=== PATIENT | male | born 2000 | race Caucasian/White ===

== ENCOUNTER 2023-01-11 02:19 | Emergency (ER) | payer SELFPAY ==
[2023-01-11] MEDS ORDERED: FAMOTIDINE 20 MG TAB ONE (02:59)
[2023-01-11] MEDS ORDERED: CETIRIZINE HCL 5 MG TABLET ONE (02:59)
--- NOTE | 2023-01-11 03:11 | ER ---
Nurse's Notes [facility] Name: Hiram Garland Age: 22 yrs Sex: Male : 2000 Arrival Date: 01/11/2023 Time: 02:19 Bed 13 Private MD: Diagnosis: Idiopathic urticaria;Streptococcal pharyngitis Presentation: 01/11 02:41 Chief complaint: Patient states: pt randomly broke out in hives all over body. at time as6 of triage symptoms have resolved. Coronavirus screen: At this time, the client does not indicate any symptoms associated with coronavirus-19. Ebola Screen: No symptoms or risks identified at this time. Initial Sepsis Screen: Does the patient meet any 2 criteria? No. Patient's initial sepsis screen is negative. Does the patient have a suspected source of infection? No. Patient's initial sepsis screen is negative. Risk Assessment: Do you want to hurt yourself or someone else? Patient reports no desire to harm self or others. Onset of symptoms was January 11, 2023. 02:41 Acuity: MANUEL 5 as6 02:41 Method Of Arrival: Ambulatory as6 Historical: - Allergies: 02:41 No Known Allergies; as6 - Home Meds: 02:41 None [Active]; as6 - PMHx: 02:41 None; as6 - PSHx: 02:41 None; as6 - Immunization history:: Client reports having NOT received the Covid vaccine. - Social history:: Smoking status: Reported history of juuling and/or vaping. Screenin:25 [facility] ED Fall Risk Assessment (Adult) History of falling in the last 3 months, ll3 including since admission No falls in past 3 months (0 pts) Confusion or Disorientation No (0 pts) Intoxicated or Sedated No (0 pts) Impaired Gait No (0 pts) Mobility Assist Device Used No (0 pt) Altered Elimination No (0 pt) Score/Fall Risk Level 0 - 2 = Low Risk Oriented to surroundings, Maintained a safe environment, Educated pt \T\ family on fall prevention, incl call for assistance when getting out of bed. Abuse screen: Denies threats or abuse. Denies injuries from another. Nutritional screening: No deficits noted. Tuberculosis screening: No symptoms or risk factors identified. Assessment: 03:25 General: Appears comfortable, Behavior is calm, cooperative. Pain: Denies pain. Neuro: ll3 Level of Consciousness is awake, alert, obeys commands, Oriented to person, place, time, situation. Respiratory: Airway is patent Respiratory effort is even, unlabored, Respiratory pattern is regular, symmetrical. EENT: No deficits noted. No signs and/or symptoms were reported regarding the EENT system. Derm: Skin is pink, warm \T\ dry. 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 Vital Signs: 02:41 BP 128 / 82; Pulse 87; Resp 18 S; Temp 98.1(O); Pulse Ox 97% on R/A; Weight 77.11 kg as6 (R); Height 6 ft. 1 in. (R); Pain 0/10; 02:41 Body Mass Index 22.43 (77.11 kg, 185.42 cm) as6 02:41 Pain Scale: Adult as6 ED Course: 02:22 Patient arrived in ED. ja2 02:26 Delisa Ga FNP-C [facility]. snw 02:26 Dann Ravi MD is Attending Physician. snw 02:41 Arm band placed on. as6 02:43 Triage completed. as6 03:25 Patient has correct armband on for positive identification. Bed in low position. Call ll3 light in reach. Side rails up X 1. Adult w/ patient. 03:25 No provider procedures requiring assistance completed. Patient did not have IV access ll3 during this emergency room visit. Administered Medications: 02:53 Drug: ZyrTEC - Cetirizine PO 10 mg Route: PO; ll3 03:27 Follow up: Response: No adverse reaction ll3 02:53 Drug: Famotidine PO 20 mg Route: PO; ll3 03:27 Follow up: Response: No adverse reaction ll3 03:25 Drug: AZITHromycin PO 500 mg Route: PO; ll3 03:27 Follow up: Response: Medication administered at discharge. ll3 Medication: 03:25 VIS not applicable for this client. ll3 Outcome: 03:10 Discharge ordered by . snw 03:25 Discharged to home ambulatory, with significant other. ll3 03:25 Condition: stable 03:25 Discharge instructions given to patient, significant other, Instructed on discharge instructions, follow up and referral plans. medication usage, Demonstrated understanding of instructions, follow-up care, medications, Prescriptions given X 4. 03:28 Patient left the ED. ll3 Signatures: Delisa Ga, ROSE MARIEC ASPHALT SPREADER OPERATOR-Stevew Hazel Santillan Ashby, RN RN as6 You Burks RN RN ll3
--- NOTE | 2023-01-11 03:11 | EDPHYS ---
Physician Documentation [facility] Name: Hiram Garland Age: 22 yrs Sex: Male : 2000 Arrival Date: 01/11/2023 Time: 02:19 Bed 13 Private MD: ED Physician Dann Ravi HPI: 01/11 02:53 This 22 yrs old Male presents to ER via Ambulatory with complaints of Hives, Rash. snw 02:53 Onset: The symptoms/episode began/occurred suddenly, and improved just prior to snw arrival. Associated signs and symptoms: Pertinent positives: sore throat. The patient has not experienced similar symptoms in the past. The patient has not recently seen a physician. 02:54 Girlfriend took photo of pt during urticarial eruption. S/s resolved on arrival here. snw Historical: - Allergies: 02:41 No Known Allergies; as6 - Home Meds: 02:41 None [Active]; as6 - PMHx: 02:41 None; as6 - PSHx: 02:41 None; as6 - Immunization history:: Client reports having NOT received the Covid vaccine. - Social history:: Smoking status: Reported history of juuling and/or vaping. ROS: 02:52 Constitutional: Negative for fever, chills, and weight loss, Eyes: Negative for injury, snw pain, redness, and discharge. 02:52 Neck: Negative for injury, pain, and swelling, Cardiovascular: Negative for chest pain, palpitations, and edema, Respiratory: Negative for shortness of breath, cough, wheezing, and pleuritic chest pain, Abdomen/GI: Negative for abdominal pain, nausea, vomiting, diarrhea, and constipation, Back: Negative for injury and pain, : Negative for injury, bleeding, discharge, and swelling, MS/Extremity: Negative for injury and deformity, Neuro: Negative for headache, weakness, numbness, tingling, and seizure, Psych: Negative for depression, anxiety, suicide ideation, homicidal ideation, and hallucinations. 02:52 ENT: Positive for tightness. 02:52 Skin: Positive for rash, swelling, diffusely. Exam: 02:52 Constitutional: This is a well developed, well nourished patient who is awake, alert, snw and in no acute distress. Head/Face: Normocephalic, atraumatic. Eyes: Pupils equal round and reactive to light, extra-ocular motions intact. Lids and lashes normal. Conjunctiva and sclera are non-icteric and not injected. Cornea within normal limits. Periorbital areas with no swelling, redness, or edema. Neck: Trachea midline, no thyromegaly or masses palpated, and no cervical lymphadenopathy. Supple, full range of motion without nuchal rigidity, or vertebral point tenderness. No Meningismus. Chest/axilla: Normal chest wall appearance and motion. Nontender with no deformity. No lesions are appreciated. Cardiovascular: Regular rate and rhythm with a normal S1 and S2. No gallops, murmurs, or rubs. Normal PMI, no JVD. No pulse deficits. Respiratory: Lungs have equal breath sounds bilaterally, clear to auscultation and percussion. No rales, rhonchi or wheezes noted. No increased work of breathing, no retractions or nasal flaring. Abdomen/GI: Soft, non-tender, with normal bowel sounds. No distension or tympany. No guarding or rebound. No evidence of tenderness throughout. Back: No spinal tenderness. No costovertebral tenderness. Full range of motion. Skin: Warm, dry with normal turgor. Normal color with no rashes, no lesions, and no evidence of cellulitis. MS/ Extremity: Pulses equal, no cyanosis. Neurovascular intact. Full, normal range of motion. Neuro: Awake and alert, GCS 15, oriented to person, place, time, and situation. Cranial nerves II-XII grossly intact. Motor strength 5/5 in all extremities. Sensory grossly intact. Cerebellar exam normal. Normal gait. Psych: Awake, alert, with orientation to person, place and time. Behavior, mood, and affect are within normal limits. 02:52 ENT: Ear canal(s): are normal, TM's: are normal, Nose: is normal, Mouth: is normal, Posterior pharynx: erythema, that is moderate, Voice: is normal. Vital Signs: 02:41 BP 128 / 82; Pulse 87; Resp 18 S; Temp 98.1(O); Pulse Ox 97% on R/A; Weight 77.11 kg as6 (R); Height 6 ft. 1 in. (R); Pain 0/10; 02:41 Body Mass Index 22.43 (77.11 kg, 185.42 cm) as6 02:41 Pain Scale: Adult as6 MDM: 02:43 Patient medically screened. snw 03:12 Differential diagnosis: allergic reaction, strep. Data reviewed: vital signs, nurses snw notes, lab test result(s). I considered the following discharge prescriptions or medication management in the emergency department Medications were administered in the Emergency Department. See MAR. Historians other than the Patient: Spouse/Significant Other: Girlfriend. Counseling: I had a detailed discussion with the patient and/or guardian regarding: the historical points, exam findings, and any diagnostic results supporting the discharge/admit diagnosis, lab results, the need for outpatient follow up, for definitive care, to return to the emergency department if symptoms worsen or persist or if there are any questions or concerns that arise at home. Special discussion: Based on the history and exam findings, there is no indication for further emergent testing or inpatient evaluation. I discussed with the patient/guardian the need to see the paving supervisor for further evaluation of the symptoms. I discussed with the patient/guardian the need to see the primary care provider for further evaluation of the symptoms. 01/11 02:52 Order name: Strep; Complete Time: 03:10 snw Administered Medications: 02:53 Drug: ZyrTEC - Cetirizine PO 10 mg Route: PO; ll3 03:27 Follow up: Response: No adverse reaction ll3 02:53 Drug: Famotidine PO 20 mg Route: PO; ll3 03:27 Follow up: Response: No adverse reaction ll3 03:25 Drug: AZITHromycin PO 500 mg Route: PO; ll3 03:27 Follow up: Response: Medication administered at discharge. ll3 Disposition Summary: 01/11/23 03:10 Discharge Ordered Location: Home snw Condition: Stable snw Diagnosis - Idiopathic urticaria snw - Streptococcal pharyngitis snw Followup: snw - With: Emergency Department - When: As needed - Reason: Worsening of condition Followup: snw - With: Private Physician - When: 2 - 3 days - Reason: Recheck today's complaints, Continuance of care, Re-evaluation by your physician Discharge Instructions: - Discharge Summary Sheet snw - Hives snw - Rash, Adult snw - Strep Throat, Adult snw Forms: - Work release form snw - Medication Reconciliation Form snw - Thank You Letter snw - Antibiotic Education snw - Prescription Opioid Use snw - [email or web address] snw Prescriptions: - Zyrtec 10 mg Oral Tablet - take 1 tablet by ORAL route once daily As needed; 20 tablet; Refills: 0, snw Product Selection Permitted - Prednisone 20 mg Oral Tablet - take 2 tablets by ORAL route once daily for 5 days; 10 tablet; Refills: 0, snw Product Selection Permitted - Pepcid 20 mg Oral Tablet - take 1 tablet by ORAL route once daily; 20 tablet; Refills: 0, Product snw Selection Permitted - Zithromax 500 mg Oral Tablet - take 1 tablet by ORAL route once daily for 5 days; 5 tablet; Refills: 0, snw Product Selection Permitted Addendum: 01/14/2023 07:44 Co-signature as Attending Physician, Dann Ravi MD I agree with the assessment s p4 and plan of care. I reviewed the patient's care provided by the Advanced Practice Provider and agree with the diagnosis and treatment plan. Signatures: Dispatcher [employer] EDDC Delisa Ga, REAL ESTATE UTILIZATION OFFICER-C REAL ESTATE UTILIZATION OFFICER-Csnw Flaco Ledezma RN RN as6 You Burks RN RN ll3 Dann Ravi MD MD sp4
[2023-01-11] MEDS ORDERED: AZITHROMYCIN 250 MG TAB ONE (03:30)
[2023-01-11 03:32] VITALS: BP 128/82; TEMP 98.1; O2SAT 97
== END 2023-01-11 03:28 | disposition home or self-care (01) ==
LOC: ER 02:19
DX: J02.0 Streptococcal pharyngitis (principal); L50.1 Idiopathic urticaria
CPT/HCPCS: 87081; 99283

== ENCOUNTER 2023-10-21 20:55 | Emergency (ER) | payer OTHER, SELFPAY ==
--- NOTE | 2023-10-21 21:40 | RAD REPORT ---
EXAM DESCRIPTION: Iris Single View10/21/2023 9:23 pm CLINICAL HISTORY: Congestion COMPARISON: none FINDINGS: The lungs appear clear of acute infiltrate. The heart is normal size IMPRESSION: No acute abnormalities displayed
[2023-10-21 22:43] LABS: Absolute Eosinophils 0.1 K/uL (0-0.5); Absolute Lymphocytes (CBC) 1.3 K/uL (0.7-4.9); Absolute Monocytes 0.5 K/uL (0.1-1.3); Absolute Neutrophil 6.1 K/uL (1.8-8.0); Basophils % 0.4 % (0-1.3); Eosinophils % 1.2 % (0-4.4); Hematocrit 38.1 % (39.6-49.0); Hemoglobin 13.5 g/dL (13.6-17.9); Lymphocytes % 16.4 % (15.3-44.8); MCH 33.8 pg (27.0-35.0); MCHC 35.3 g/dL (32.0-36.0); MCV 95.6 fL (80-100); MPV 7.4 fL (7.6-11.3); Monocytes % 6.1 % (3.3-12.3); Neutrophils % 75.9 % (41.7-73.7); Nucleated Red Blood Cells % 0.1 % (0-0); Platelets 293 thou/uL (152-406); RBC Red Blood Cell Count 3.99 M/uL (4.33-5.43); Red Cell Distribution Width 12.9 % (12.1-15.2)
[2023-10-21 22:56] LABS: ALT/SGPT 55 U/L (16-61); AST/SGOT 27 U/L (15-37); Albumin 4.5 g/dL (3.4-5.0); Albumin/Globulin Ratio 1.4 (1.1-1.8); Alkaline Phosphatase 65 U/L (45-117); Anion Gap 9.1 mEq/L (5.0-15.0); BUN Blood Urea Nitrogen 16 mg/dL (7-18); Bicarbonate 25 mEq/L (21-32); Bilirubin Direct 0.1 mg/dL (0-0.2); Bilirubin Indirect, Calculated 0.3 mg/dL (0.2-0.8); Bilirubin Total 0.4 mg/dL (0.2-1.0); Globulin 3.3 g/dL (2.3-3.5); Glomerular Filtration Rate 111 ml/min (=/>90); Glucose Level 97 mg/dL (74-106); Lipase 52 U/L (13-75); Potassium 3.1 mEq/L (3.5-5.1); Protein, Total 7.8 g/dL (6.4-8.2); Sodium Level 136 mEq/L (136-145)
[2023-10-21 22:57] LABS: C-Reactive Protein < 2.90 mg/L (<3.00)
--- NOTE | 2023-10-21 23:23 | EDPHYS ---
Physician Documentation [facility] Name: Hiram Garland Age: 23 yrs Sex: Male : 2000 Arrival Date: 10/21/2023 Time: 20:55 Bed 10 Private MD: ED Physician Dann Ravi HPI: 10/20 21:06 This 23 yrs old Male presents to ER via Unassigned with complaints of sp4 Chemical Inhalation, Inhaled synthetic phenol. 23:31 23-year-old male presents with complaint of feeling unwell after possible fentanyl sp4 inhalation at 8 PM. Patient is employed for [employer] at 8 PM he was at work and next of the valve all of this in bed external receptacle. Patient reports that he briefly took off his mask and felt unwell. Denied oral irritation, denied cough, denied wheezing, denied bloody exudate or discharge or sputum. . Historical: - Allergies: 21:35 wasps/bees; bm8 - Home Meds: 21:35 None [Active]; bm8 - PMHx: 21:35 None; bm8 - PSHx: 21:35 None; bm8 - Immunization history:: Adult Immunizations unknown. - Infectious Disease History:: Denies. - Social history:: Smoking status: Reported history of juuling and/or vaping. - Family history:: not pertinent. ROS: 23:31 Constitutional: Positive for fatigue and positive for feeling unwell sp4 23:31 All other systems are negative, Exam: 23:31 Constitutional: This is a well developed, well nourished patient who is awake, alert, sp4 and in no acute distress. Head/Face: Normocephalic, atraumatic. Eyes: Pupils equal round and reactive to light, extra-ocular motions intact. Lids and lashes normal. Conjunctiva and sclera are not injected. Cornea within normal limits. Periorbital areas with no swelling, redness, or edema. ENT: Nares patent. No nasal discharge, no septal abnormalities noted. Tympanic membranes are normal and external auditory canals are clear. Oropharynx with no redness, swelling, or masses, exudates, or evidence of obstruction, uvula midline. Mucous membranes moist. Neck: Trachea midline, no thyromegaly or masses palpated, and no cervical lymphadenopathy. Supple, full range of motion without nuchal rigidity, or vertebral point tenderness. Chest/axilla: Normal chest wall appearance and motion. Nontender with no deformity. No lesions are appreciated. Cardiovascular: Regular rate and rhythm with a normal S1 and S2. No gallops, murmurs, or rubs. Normal PMI, no JVD. No pulse deficits. Respiratory: Lungs have equal breath sounds bilaterally, clear to auscultation and percussion. No rales, rhonchi or wheezes noted. No increased work of breathing, no retractions or nasal flaring. Abdomen/GI: Soft, with normal bowel sounds. No distension or tympany. No guarding or rebound. No evidence of tenderness throughout. Back: No spinal tenderness. No costovertebral tenderness. Skin: Warm, dry with normal turgor. Normal color with no rashes, no lesions, and no evidence of cellulitis. MS/ Extremity: Pulses equal, no cyanosis. Neurovascular intact. Full, normal range of motion. Neuro: Awake and alert, GCS 15, oriented to person, place, time, and situation. Cranial nerves II-XII grossly intact. Motor strength 5/5 in all extremities. Sensory grossly intact. Psych: Awake, alert, with orientation to person, place and time. Behavior, mood, and affect are within normal limits Vital Signs: 21:10 BP 160 / 80; Pulse 89; Resp 16; Temp 98.9(O); Pulse Ox 100% on R/A; Weight 79.38 kg km8 (R); Height 6 ft. 0 in. (R); Pain 0/10; 22:41 BP 133 / 76; Pulse 88; Resp 16; Temp 98.7; Pulse Ox 100% on R/A; Pain 0/10; bm8 23:22 BP 131 / 81; Pulse 68; Resp 17; Temp 98.7; Pulse Ox 97% ; Pain 0/10; bm8 21:10 Body Mass Index 23.73 (79.38 kg, 182.88 cm) km 21:10 Pain Scale: Adult km8 22:41 Pain Scale: Adult bm8 23:22 Pain Scale: Adult bm8 [place] Coma Score: 21:35 Eye Response: spontaneous(4). Motor Response: obeys commands(6). Verbal Response: bm8 oriented(5). Total: 15. 22:41 Eye Response: spontaneous(4). Motor Response: obeys commands(6). Verbal Response: bm8 oriented(5). Total: 15. 23:31 Eye Response: spontaneous(4). Motor Response: obeys commands(6). Verbal Response: sp4 oriented(5). Total: 15. MDM: 21:02 Patient medically screened. sp4 23:31 Differential Diagnosis Inhalation injury. Data reviewed: vital signs, nurses notes, lab sp4 test result(s), radiologic studies, plain films. ED course: EXAM DESCRIPTION: Iris Verduzco View10/21/2023 9:23 pm CLINICAL HISTORY: Congestion COMPARISON: none FINDINGS: The lungs appear clear of acute infiltrate. The heart is normal size IMPRESSION: No acute abnormalities displayed. 23:34 ED course: Patient does not have signs of inhalation injury on exam. Normal exam of the sp4 oral cavity and normal lung sounds. Normal chest x-ray. Labs essentially unremarkable except for mildly decreased potassium. No further recommendation. Patient cleared for work without restrictions.. 10/20 21:02 Order name: BMP; Complete Time: 23:16 sp4 10/20 21:02 Order name: CBC with Diff; Complete Time: 22:46 sp4 10/20 21:02 Order name: Hepatic Function; Complete Time: 23:16 sp4 10/20 21:02 Order name: Lipase; Complete Time: 23:16 sp4 10/20 22:31 Order name: C-Reactive Protein; Complete Time: 23:16 EDMS 10/20 21:02 Order name: XRAY CXR (1 view); Complete Time: 22:46 sp4 10/20 21:02 Order name: IV Saline Lock; Complete Time: 21:35 sp4 10/20 21:02 Order name: Labs collected and sent; Complete Time: 21:35 sp4 10/20 21:02 Order name: O2 Per Protocol; Complete Time: 21:35 sp4 10/20 21:02 Order name: O2 Sat Monitoring; Complete Time: 21:35 sp4 Administered Medications: No medications were administered Disposition Summary: 10/21/23 23:22 Discharge Ordered Problem: new sp4 Symptoms: have improved sp4 Condition: Stable sp4 Diagnosis - Acute inhalational of synthetic Phenol , sp4 - Normal respiratory exam, sp4 - Evaluation for acute inhalation injury sp4 Followup: sp4 - With: Private Physician - When: 7 - 10 days - Reason: Recheck today's complaints Discharge Instructions: - Discharge Summary Sheet sp4 - Chemical Inhalation Injury, Adult sp4 Forms: - Patient Portal Instructions sp4 Signatures: Dispatcher [employer] EDMS Dann Ravi MD MD sp4 Julia Teixeira, RN RN km8 Meng Harding RN RN bm8 Corrections: (The following items were deleted from the chart) 22:31 21:15 C-REACTIVE PROTEIN+C.LAB.BRZ ordered. EDMS EDMS
--- NOTE | 2023-10-21 23:23 | ER ---
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 Coronavirus screen: Client denies travel out of the [place] in the last 14 days. Ebola Screen: No symptoms or risks identified at this time. Initial Sepsis Screen: Does the patient meet any 2 criteria? No. Patient's initial sepsis screen is negative. Does the patient have a suspected source of infection? No. Patient's initial sepsis screen is negative. Risk Assessment: Do you want to hurt yourself or someone else? Patient reports no desire to harm self or others. Onset of symptoms was October 21, 2023 at 20:00. 21:10 Method Of Arrival: Ambulatory km8 21:10 Acuity: MANUEL 3 km8 Triage Assessment: 21:10 General: Appears in no apparent distress. comfortable, Behavior is calm, cooperative, km8 appropriate for age. Pain: Denies pain. EENT: No signs and/or symptoms were reported regarding the EENT system. Neuro: Level of Consciousness is awake, alert, obeys commands, Oriented to person, place, time, situation. Cardiovascular: Denies chest pain, shortness of breath, Patient's skin is warm and dry. Respiratory: Reports none Airway is patent Respiratory effort is even, unlabored, Respiratory pattern is regular, symmetrical, Onset: The symptoms/episode began/occurred suddenly, the patient has mild shortness of breath. GI: No signs and/or symptoms were reported involving the gastrointestinal system. : No signs and/or symptoms were reported regarding the genitourinary system. Derm: No signs and/or symptoms reported regarding the dermatologic system. Skin is intact, is healthy with good turgor, Skin is dry, Skin is pink, warm \T\ dry. normal, Skin temperature is warm. Musculoskeletal: No signs and/or symptoms reported regarding the musculoskeletal system. Range of motion: intact in all extremities. Historical: - Allergies: 21:35 wasps/bees; bm8 - Home Meds: 21:35 None [Active]; bm8 - PMHx: 21:35 None; bm8 - PSHx: 21:35 None; bm8 - Immunization history:: Adult Immunizations unknown. - Infectious Disease History:: Denies. - Social history:: Smoking status: Reported history of juuling and/or vaping. - Family history:: not pertinent. Screenin:13 [facility] ED Fall Risk Assessment (Adult) History of falling in the last 3 months, km8 including since admission No falls in past 3 months (0 pts) Confusion or Disorientation No (0 pts) Intoxicated or Sedated No (0 pts) Impaired Gait No (0 pts) Mobility Assist Device Used No (0 pt) Altered Elimination No (0 pt) Score/Fall Risk Level 0 - 2 = Low Risk Oriented to surroundings, Maintained a safe environment, Educated pt \T\ family on fall prevention, incl call for assistance when getting out of bed, Assessed \T\ reinforced patient's understanding of fall precautions. Abuse screen: Denies threats or abuse. Denies injuries from another. Nutritional screening: No deficits noted. Tuberculosis screening: No symptoms or risk factors identified. Assessment: 21:31 Reassessment: Patient appears in no apparent distress at this time. Patient and/or bm8 family updated on plan of care and expected duration. Pain level reassessed. Patient is alert, oriented x 3, equal unlabored respirations, skin warm/dry/pink. Patient denies pain at this time. General: Appears in no apparent distress. comfortable, Behavior is calm, cooperative, appropriate for age. Pain: Denies pain. Neuro: No deficits noted. Level of Consciousness is awake, alert, obeys commands, Oriented to person, place, time, situation, Appropriate for age. Cardiovascular: Denies chest pain, lightheadedness, shortness of breath, Heart tones S1 S2 present Capillary refill < 3 seconds Patient's skin is warm and dry. Rhythm is sinus rhythm. Respiratory: No deficits noted. Airway is patent Respiratory effort is even, unlabored, Respiratory pattern is regular, symmetrical, Breath sounds are clear bilaterally. the patient reports symptoms have resolved. GI: No deficits noted. No signs and/or symptoms were reported involving the gastrointestinal system. : No deficits noted. No signs and/or symptoms were reported regarding the genitourinary system. EENT: No deficits noted. No signs and/or symptoms were reported regarding the EENT system. Derm: No deficits noted. No signs and/or symptoms reported regarding the dermatologic system. Musculoskeletal: No deficits noted. No signs and/or symptoms reported regarding the musculoskeletal system. 22:41 Reassessment: Patient appears in no apparent distress at this time. No changes from [facility] previously documented assessment. Patient and/or family updated on plan of care and expected duration. Pain level reassessed. Patient is alert, oriented x 3, equal unlabored respirations, skin warm/dry/pink. Patient denies pain at this time. 23:22 Reassessment: Patient appears in no apparent distress at this time. No changes from 8 previously documented assessment. Patient and/or family updated on plan of care and expected duration. Pain level reassessed. Patient is alert, oriented x 3, equal unlabored respirations, skin warm/dry/pink. Patient denies pain at this time. Vital Signs: 21:10 BP 160 / 80; Pulse 89; Resp 16; Temp 98.9(O); Pulse Ox 100% on R/A; Weight 79.38 kg 8 (R); Height 6 ft. 0 in. (R); Pain 0/10; 22:41 BP 133 / 76; Pulse 88; Resp 16; Temp 98.7; Pulse Ox 100% on R/A; Pain 0/10; bm8 23:22 BP 131 / 81; Pulse 68; Resp 17; Temp 98.7; Pulse Ox 97% ; Pain 0/10; bm8 21:10 Body Mass Index 23.73 (79.38 kg, 182.88 cm) [facility] 21:10 Pain Scale: Adult km8 22:41 Pain Scale: Adult bm8 23:22 Pain Scale: Adult bm8 [place] Coma Score: 21:35 Eye Response: spontaneous(4). Motor Response: obeys commands(6). Verbal Response: bm8 oriented(5). Total: 15. 22:41 Eye Response: spontaneous(4). Motor Response: obeys commands(6). Verbal Response: bm8 oriented(5). Total: 15. 23:31 Eye Response: spontaneous(4). Motor Response: obeys commands(6). Verbal Response: sp4 oriented(5). Total: 15. ED Course: 20:57 Patient arrived in ED. jj6 21:01 Dann Ravi MD is Attending Physician. sp4 21:10 Arm band placed on right wrist. km8 21:11 Triage completed. km8 21:24 XRAY CXR (1 view) In Process Unspecified. EDMS 21:31 Meng Harding, RN is Primary Nurse. bm8 21:35 Patient has correct armband on for positive identification. Bed in low position. Call bm8 light in reach. Side rails up X 1. Adult w/ patient. Pulse ox on. NIBP on. Door closed. Noise minimized. Visitors limited. Lights dimmed. Warm blanket given. Verbal reassurance given. 21:35 BMP Sent. bm8 21:35 CBC with Diff Sent. bm8 21:35 Hepatic Function Sent. bm8 21:35 Lipase Sent. bm8 21:35 No provider procedures requiring assistance completed. Initial lab(s) drawn, by nm, bm8 sent to lab. X-ray(s) taken. Inserted saline lock: 18 gauge in left antecubital area, using aseptic technique. Blood collected. 23:22 Provided Education on: post ER care. bm8 23:22 IV discontinued, intact, bleeding controlled, No redness/swelling at site. Pressure bm8 dressing applied. Administered Medications: No medications were administered Medication: 21:35 VIS not applicable for this client. bm8 Outcome: 23:22 Discharge ordered by . sp4 23:30 Patient left the ED. bm8 Signatures: Dispatcher [employer] EDPR Jonathan Janice jj6 Dann Ravi MD MD sp4 Julia Teixeira, RN RN km8 Meng Harding, RN RN bm8
[2023-10-22 02:17] VITALS: BP 131/81; TEMP 98.7; O2SAT 97
== END 2023-10-21 23:30 | disposition home or self-care (01) ==
LOC: ER 20:55
DX: T49.0X1A Poisoning by local antifungal, anti-infective and anti-inflammatory drugs, accidental (unintentional), initial encounter (principal); Z91.030 Bee allergy status; Z91.038 Other insect allergy status
CPT/HCPCS: 36415; 71045; 80048; 80076; 83690; 85025; 86140

== ENCOUNTER 2023-12-10 20:46 | Emergency (ER) | payer BC, OTHER ==
[2023-12-10 22:13] LABS: Absolute Eosinophils 0.1 K/uL (0-0.5); Absolute Lymphocytes (CBC) 1.7 K/uL (0.7-4.9); Absolute Monocytes 0.4 K/uL (0.1-1.3); Absolute Neutrophil 6.1 K/uL (1.8-8.0); Basophils % 0.3 % (0-1.3); Eosinophils % 1.2 % (0-4.4); Hematocrit 40.1 % (39.6-49.0); Hemoglobin 13.9 g/dL (13.6-17.9); Lymphocytes % 20.9 % (15.3-44.8); MCH 32.9 pg (27.0-35.0); MCHC 34.7 g/dL (32.0-36.0); MCV 94.8 fL (80-100); MPV 7.1 fL (7.6-11.3); Monocytes % 5.2 % (3.3-12.3); Neutrophils % 72.4 % (41.7-73.7); Platelets 330 thou/uL (152-406); RBC Red Blood Cell Count 4.23 M/uL (4.33-5.43); Red Cell Distribution Width 12.8 % (12.1-15.2)
[2023-12-10 22:18] LABS: PT Prothrombin Time 12.6 SECONDS (9.5-12.5); Protime INR 1.15
--- NOTE | 2023-12-10 22:28 | RAD REPORT ---
EXAM DESCRIPTION: RAD - Chest Single View - 12/10/2023 10:23 pm CLINICAL HISTORY: CHEST PAIN Chest pain. COMPARISON: Chest Single View dated 10/21/2023 FINDINGS: Portable technique limits examination quality. The lungs are grossly clear. The heart is normal in size. No displaced fractures. IMPRESSION: No acute intrathoracic process suspected.
[2023-12-10 22:38] LABS: ALT/SGPT 31 U/L (16-61); Albumin 4.8 g/dL (3.4-5.0); Albumin/Globulin Ratio 1.5 (1.1-1.8); Alkaline Phosphatase 73 U/L (45-117); Anion Gap 8.7 mEq/L (5.0-15.0); BUN Blood Urea Nitrogen 12 mg/dL (7-18); Bicarbonate 26 mEq/L (21-32); Bilirubin Direct 0.2 mg/dL (0-0.2); Bilirubin Indirect, Calculated 0.5 mg/dL (0.2-0.8); Bilirubin Total 0.7 mg/dL (0.2-1.0); Globulin 3.3 g/dL (2.3-3.5); Glomerular Filtration Rate 111 ml/min (=/>90); Glucose Level 97 mg/dL (74-106); Magnesium 2.1 mg/dL (1.6-2.4); NT PRO-BNP 8 pg/mL (<125); Potassium 3.7 mEq/L (3.5-5.1); Protein, Total 8.1 g/dL (6.4-8.2); Sodium Level 136 mEq/L (136-145); Troponin High Sensitivity 3.7 pg/mL (<58.9)
[2023-12-10 23:00] LABS: AST/SGOT < 10 U/L (15-37)
--- NOTE | 2023-12-11 00:46 | EDPHYS ---
Physician Documentation [facility] Name: Hiram Garland Age: 23 yrs Sex: Male : 2000 Arrival Date: 12/10/2023 Time: 20:46 Bed 8 Private MD: ED Physician Dann Ravi HPI: 12/09 21:19 This 23 yrs old Male presents to ER via Unassigned with complaints of sp4 Breathing Difficulty. 12/10 03:38 23-year-old male presents with complaint of difficulty breathing since he is sp4 inhalational fentanyl on 10/21/2023. The patient also reported some chest discomfort as well. Historical: - Allergies: 12/09 21:39 wasps/bees; cm10 - PMHx: 21:39 None; cm10 - PSHx: 21:39 None; cm10 - Immunization history:: Adult Immunizations up to date. - Infectious Disease History:: Denies. - Social history:: Smoking status: Patient/guardian denies using tobacco, Stopped _ months ago 2. - Family history:: not pertinent. ROS: 12/10 03:38 Constitutional: Negative for fever, chills, and weight loss, positive dyspnea and chest sp4 pain All other systems are negative, Exam: 00:34 Constitutional: This is a well developed, well nourished patient who is awake, alert, sp4 and in no acute distress. Head/Face: Normocephalic, atraumatic. Eyes: Pupils equal round and reactive to light, extra-ocular motions intact. Lids and lashes normal. Conjunctiva and sclera are not injected. Cornea within normal limits. Periorbital areas with no swelling, redness, or edema. ENT: Nares patent. No nasal discharge, no septal abnormalities noted. Tympanic membranes are normal and external auditory canals are clear. Oropharynx with no redness, swelling, or masses, exudates, or evidence of obstruction, uvula midline. Mucous membranes moist. Neck: Trachea midline, no thyromegaly or masses palpated, and no cervical lymphadenopathy. Supple, full range of motion without nuchal rigidity, or vertebral point tenderness. Chest/axilla: Normal chest wall appearance and motion. Nontender with no deformity. No lesions are appreciated. Cardiovascular: Regular rate and rhythm with a normal S1 and S2. No gallops, murmurs, or rubs. Normal PMI, no JVD. No pulse deficits. Respiratory: Lungs have equal breath sounds bilaterally, clear to auscultation and percussion. No rales, rhonchi or wheezes noted. No increased work of breathing, no retractions or nasal flaring. Abdomen/GI: Soft, with normal bowel sounds. No distension or tympany. No guarding or rebound. No evidence of tenderness throughout. Back: No spinal tenderness. No costovertebral tenderness. Skin: Warm, dry with normal turgor. Normal color with no rashes, no lesions, and no evidence of cellulitis. MS/ Extremity: Pulses equal, no cyanosis. Neurovascular intact. Full, normal range of motion. Neuro: Awake and alert, GCS 15, oriented to person, place, time, and situation. Cranial nerves II-XII grossly intact. Motor strength 5/5 in all extremities. Sensory grossly intact. Psych: Awake, alert, with orientation to person, place and time. Behavior, mood, and affect are within normal limits 00:34 ECG was reviewed by the Attending Physician. EKG at 2207, normal sinus rhythm with sinus arrhythmia at a rate of 88. Otherwise normal EKG. Vital Signs: 12/09 21:37 BP 124 / 77; Pulse 74; Resp 18; Temp 99.3(TE); Pulse Ox 99% ; Weight 70.76 kg; Height 6 cm10 ft. 0 in. ; Pain 6/10; 22:16 BP 137 / 89; Pulse 89; Resp 16; Pulse Ox 100% on R/A; km8 22:30 BP 109 / 75; Pulse 67; Resp 16; Pulse Ox 100% ; km8 23:00 BP 113 / 61; Pulse 67; Resp 16; Pulse Ox 99% on R/A; km8 23:30 BP 121 / 70; Pulse 74; Resp 16; Pulse Ox 100% on R/A; 12/10 00:00 BP 122 / 56; Pulse 64; Resp 16; Pulse Ox 98% on R/A; km8 00:30 BP 111 / 85; Pulse 62; Resp 16; Pulse Ox 100% on R/A; km8 00:52 BP 111 / 85; Pulse 79; Resp 19; Temp 98.2(TE); Pulse Ox 98% ; Pain 0/10; tm6 05/30 21:37 Body Mass Index 21.16 (70.76 kg, 182.88 cm) cm10 12/09 21:37 Pain Scale: Adult cm10 00:52 Pain Scale: Adult tm6 [place] Coma Score: 12/09 22:14 Eye Response: spontaneous(4). Motor Response: obeys commands(6). Verbal Response: km8 oriented(5). Total: 15. MDM: 21:43 Patient medically screened. sp4 12/10 00:32 ED course: EXAM: CTAngiography Chest With Intravenous Contrast CLINICAL HISTORY: The sp4 patient is 23 years old and is Male; DYSPNEA TECHNIQUE: Axial computed tomographic angiography images of the chest with intravenous contrast. Sagittal and coronal reformatted images were created and reviewed. This CT exam was performed using one or more of the following dose reduction techniques: automated exposure control, adjustment of the mA and/or kV according to patient size, and/or use of iterative reconstruction technique. MIP reconstructed images were created and reviewed. COMPARISON: No relevant prior studies available. FINDINGS: PULMONARYARTERIES: Unremarkable. No pulmonary embolism. AORTA: No acute findings. No thoracic aortic aneurysm. LUNGS: Unremarkable. No mass. No consolidation. PLEURAL SPACE: Unremarkable. No significant effusion. No pneumothorax. HEART: Unremarkable. No cardiomegaly. No significant pericardial effusion. No evidence of RV dysfunction. BONES/JOINTS: No acute fracture. No dislocation. SOFT TISSUES: Unremarkable. LYMPH NODES: Unremarkable. No enlarged lymph nodes. IMPRESSION: Normal chest CTA. No pulmonary embolism. 03:38 Differential diagnosis: Anxiety Reaction asthma, Bronchitis pneumonia, Pneumothorax. sp4 Data reviewed: vital signs, nurses notes, old medical records, lab test result(s), EKG, radiologic studies, CT scan, plain films. 03:40 ED course: Patient was advised to see promotions officer Dr. Bella for pulmonary function sp4 test.. 12/09 21:55 Order name: Basic Metabolic Panel; Complete Time: 00: sp4 12/09 21:55 Order name: CBC with Diff; Complete Time: : sp4 12/09 21:55 Order name: LFT's; Complete Time: 00: sp4 12/09 21:55 Order name: Magnesium; Complete Time: 00: sp4 12/09 21:55 Order name: NT PRO-BNP; Complete Time: 00:4 12/09 21:55 Order name: PT-INR; Complete Time: : 4 12/09 21:55 Order name: Troponin HS; Complete Time: : 4 12/09 21:55 Order name: T4 Free; Complete Time: : 4 12/09 21:55 Order name: TSH; Complete Time: 00: 4 12/09 21:55 Order name: XRAY Chest (1 view); Complete Time: : 4 12/09 21:55 Order name: CT Chest For PE Angio 4 12/09 21:55 Order name: EKG; Complete Time: :4 12/09 21:55 Order name: Cardiac monitoring; Complete Time: 22: [facility] 12/09 21:55 Order name: EKG - Nurse/Tech; Complete Time: 22: 12/09 21:55 Order name: IV Saline Lock; Complete Time: 22: [facility] 12/09 21:55 Order name: Labs collected and sent; Complete Time: : 12/09 21:55 Order name: O2 Per Protocol; Complete Time: 22:4 12/09 21:55 Order name: O2 Sat Monitoring; Complete Time: : EC:34 Rate is 88 beats/min. Rhythm is regular, Normal Sinus Rhythm. QRS [place] is Normal. NM sp4 interval is normal. QRS interval is normal. QT interval is normal. No Q waves. T waves are Normal. No ST changes noted. Clinical impression: Normal ECG. Interpreted by me. Reviewed by me. Administered Medications: No medications were administered Disposition Summary: 12/11/23 00:46 Discharge Ordered Notes: Location: Home sp4 Problem: new sp4 Symptoms: have improved sp4 Condition: Stable sp4 Diagnosis - Dyspnea, unspecified sp4 - Acid reflux sp4 Followup: sp4 - With: Reza Bella MD - When: 7 - 10 days - Reason: Recheck today's complaints Discharge Instructions: - Discharge Summary Sheet sp4 - Gastroesophageal Reflux Disease, Adult, [id number] sp4 Forms: - Patient Portal Instructions sp4 - Work release form tm6 Prescriptions: - omeprazole 20 mg Oral capsule,delayed release (e.c.) - take 1 capsule ORAL route daily; 30 capsule; Refills: 0, Product Selection sp4 Permitted Signatures: Dispatcher [employer] Dann Duncan MD MD sp4 Dinorah Oreilly, RN RN cm10
--- NOTE | 2023-12-11 00:46 | ER ---
Nurse's Notes [facility] Name: Hiram Garland Age: 23 yrs Sex: Male : 2000 Arrival Date: 12/10/2023 Time: 20:46 Bed 8 Private MD: Diagnosis: Dyspnea, unspecified;Acid reflux Presentation: 12/09 21:37 Chief complaint: Patient states: Exposed to Phenyl 8 weeks ago and since then he has cm10 been having shortness of breath. Respirations even and unlabored in triage. Pt states that his shortness of breath is worse when laying flat. Coronavirus screen: Client denies travel out of the [place] in the last 14 days. At this time, the client does not indicate any symptoms associated with coronavirus-19. Ebola Screen: Patient denies travel to an Ebola-affected area in the 21 days before illness onset. No symptoms or risks identified at this time. Initial Sepsis Screen: Does the patient meet any 2 criteria? No. Patient's initial sepsis screen is negative. Does the patient have a suspected source of infection? No. Patient's initial sepsis screen is negative. Risk Assessment: Do you want to hurt yourself or someone else? Patient reports no desire to harm self or others. Onset of symptoms was December 10, 2023. 21:37 Method Of Arrival: Ambulatory 10 21:37 Acuity: MANUEL 3 cm10 Triage Assessment: 21:39 General: Appears in no apparent distress. comfortable, Behavior is calm, cooperative. cm10 Neuro: No deficits noted. Level of Consciousness is awake, alert, obeys commands, Oriented to person, place, time, situation, Appropriate for age. Respiratory: No deficits noted. Reports shortness of breath at rest Airway is patent Respiratory effort is even, unlabored, Respiratory pattern is regular, symmetrical. 12/10 00:52 Respiratory: Onset: The symptoms/episode began/occurred. tm6 Historical: - Allergies: 12/09 21:39 wasps/bees; cm10 - PMHx: 21:39 None; cm10 - PSHx: 21:39 None; cm10 - Immunization history:: Adult Immunizations up to date. - Infectious Disease History:: Denies. - Social history:: Smoking status: Patient/guardian denies using tobacco, Stopped _ months ago 2. - Family history:: not pertinent. Screenin:14 [facility] ED Fall Risk Assessment (Adult) History of falling in the last 3 months, km8 including since admission No falls in past 3 months (0 pts) Confusion or Disorientation No (0 pts) Intoxicated or Sedated No (0 pts) Impaired Gait No (0 pts) Mobility Assist Device Used No (0 pt) Altered Elimination No (0 pt) Score/Fall Risk Level 0 - 2 = Low Risk Oriented to surroundings, Maintained a safe environment, Educated pt \T\ family on fall prevention, incl call for assistance when getting out of bed, Assessed \T\ reinforced patient's understanding of fall precautions. Abuse screen: Denies threats or abuse. Denies injuries from another. Nutritional screening: No deficits noted. Tuberculosis screening: No symptoms or risk factors identified. Assessment: 22:14 General: Appears in no apparent distress. comfortable, Behavior is calm, cooperative, km8 appropriate for age. Pain: Denies pain. Neuro: Level of Consciousness is awake, alert, obeys commands, Oriented to person, place, time, situation. Cardiovascular: Denies chest pain, shortness of breath, Patient's skin is warm and dry. Rhythm is sinus rhythm. Respiratory: Reports SOB when laying down and trying to go to sleep; no SOB at this time Airway is patent Respiratory effort is even, unlabored, Respiratory pattern is regular, symmetrical, Breath sounds are clear bilaterally. GI: No signs and/or symptoms were reported involving the gastrointestinal system. : No signs and/or symptoms were reported regarding the genitourinary system. EENT: No signs and/or symptoms were reported regarding the EENT system. Derm: No signs and/or symptoms reported regarding the dermatologic system. Skin is intact, is healthy with good turgor, Skin is dry, Skin is pink, warm \T\ dry. normal, Skin temperature is warm. Musculoskeletal: No signs and/or symptoms reported regarding the musculoskeletal system. Range of motion: intact in all extremities. 23:05 Reassessment: Patient appears in no apparent distress at this time. No changes from km8 previously documented assessment. Patient and/or family updated on plan of care and expected duration. Pain level reassessed. Patient is alert, oriented x 3, equal unlabored respirations, skin warm/dry/pink. 12/10 00:36 Reassessment: Patient appears in no apparent distress at this time. No changes from km8 previously documented assessment. Patient and/or family updated on plan of care and expected duration. Pain level reassessed. Patient is alert, oriented x 3, equal unlabored respirations, skin warm/dry/pink. Dr. Ravi at bedside speaking with pt about results and POC. Vital Signs: 12/09 21:37 BP 124 / 77; Pulse 74; Resp 18; Temp 99.3(TE); Pulse Ox 99% ; Weight 70.76 kg; Height 6 cm10 ft. 0 in. ; Pain 6/10; 22:16 BP 137 / 89; Pulse 89; Resp 16; Pulse Ox 100% on R/A; km8 22:30 BP 109 / 75; Pulse 67; Resp 16; Pulse Ox 100% ; km8 23:00 BP 113 / 61; Pulse 67; Resp 16; Pulse Ox 99% on R/A; km8 23:30 BP 121 / 70; Pulse 74; Resp 16; Pulse Ox 100% on R/A; km8 12/10 00:00 BP 122 / 56; Pulse 64; Resp 16; Pulse Ox 98% on R/A; km8 00:30 BP 111 / 85; Pulse 62; Resp 16; Pulse Ox 100% on R/A; km8 00:52 BP 111 / 85; Pulse 79; Resp 19; Temp 98.2(TE); Pulse Ox 98% ; Pain 0/10; tm6 12/09 21:37 Body Mass Index 21.16 (70.76 kg, 182.88 cm) cm10 12/09 21:37 Pain Scale: Adult cm10 00:52 Pain Scale: Adult tm6 [place] Coma Score: 12/09 22:14 Eye Response: spontaneous(4). Motor Response: obeys commands(6). Verbal Response: km8 oriented(5). Total: 15. ED Course: 20:55 Patient arrived in ED. gm2 21:19 Dann Ravi MD is Attending Physician. sp4 21:39 Triage completed. cm10 21:40 Arm band placed on Patient placed in waiting room. cm10 22:02 Julia Teixeira, BENY is Primary Nurse. km8 22:09 TSH Sent. rv1 22:09 T4 Free Sent. rv1 22:09 Basic Metabolic Panel Sent. rv1 22:09 CBC with Diff Sent. rv1 22:09 LFT's Sent. rv1 22:09 Magnesium Sent. rv1 22:09 NT PRO-BNP Sent. rv1 22:09 PT-INR Sent. rv1 22:09 Troponin HS Sent. rv1 22:09 EKG done, by ED staff, reviewed by Dann Ravi MD. rv1 22:09 Inserted saline lock: 20 gauge in right antecubital area, using aseptic technique. km8 Blood collected. 22:14 Patient has correct armband on for positive identification. Bed in low position. Call km8 light in reach. Side rails up X 1. Client placed on continuous cardiac and pulse oximetry monitoring. NIBP monitoring applied. groundwater monitoring technician on. Pulse ox on. NIBP on. 22:16 Provided Education on: call light use. km8 22:25 XRAY Chest (1 view) In Process Unspecified. EDMS 23:28 CT Chest For PE Angio In Process Unspecified. EDMS 12/10 00:38 No provider procedures requiring assistance completed. km8 00:45 Reza Bella MD is Referral Physician. sp4 00:50 IV discontinued, intact, bleeding controlled, No redness/swelling at site. Pressure km8 dressing applied. Administered Medications: No medications were administered Medication: 12/09 22:14 VIS not applicable for this client. km8 Outcome: 12/10 00:46 Discharge ordered by . sp4 00:50 Discharged to home ambulatory, with significant other, km8 00:50 Condition: good 00:50 Discharge instructions given to patient, significant other, Instructed on discharge instructions, follow up and referral plans. medication usage, Demonstrated understanding of instructions, follow-up care, medications, Prescriptions given X 1, 00:53 Patient left the ED. tm6 Signatures: Dispatcher [employer] EDOR Lyn Coffman rv1 Dann Ravi MD MD sp4 Dinorah Oreilly, RN RN 10 Yolette Brady 2 Julia Teixeira, BENY RN km8 Jaguar Gu RN RN tm6
[2023-12-11 02:25] VITALS: BP 111/85; TEMP 98.2; O2SAT 98
--- NOTE | 2023-12-11 16:48 | EKG ---
Test Date: 2023-12-10 Test Time: 22:07:17 Clinical Lab Clerk: RV MEASUREMENT RESULTS: Intervals: Rate: 88 [place]: 124 QRSD: 88 QT: 366 QTc: 442 [place]: P: 74 [place]: 124 QRS: 79 T: 53 INTERPRETIVE STATEMENTS: Normal sinus rhythm with sinus arrhythmia Normal ECG No previous ECG available for comparison Electronically Signed On 12-11-23 16:47:21 CDT by Siddharth Munson
--- NOTE | 2023-12-11 17:01 | RAD REPORT ---
EXAM DESCRIPTION: CT - Chest For Pe Angio - 12/11/2023 6:[address] Angiography Chest With Intravenous Contrast CLINICAL HISTORY: The patient is 23 years old and is Male; DYSPNEA TECHNIQUE: Axial computed tomographic angiography images of the chest with intravenous contrast. S agittal and coronal reformatted images were created and reviewed. This CT exam was performed using one or more of the following dose reduction techniques: automated exposure control, adjustment of t he mA and/or kV according to patient size, and/or use of iterative reconstruction technique. MIP reconstructed images were created and reviewed. COMPARISON: No relevant prior studies available. FINDINGS: PULMONARY ARTERIES: Unremarkable. No pulmonary embolism. AORTA: No acute findings. No thoracic aortic aneurysm. LUNGS: Unremarkable. No mass. No consolidation. PLEURAL SPACE: Unremarkable. No significant effusion. No pneumothorax. HEART: Unremarkable. No cardiomegaly. No significant pericardial effusion. No evidence of R V dysfunction. BONES/JOINTS: No acute fracture. No dislocation. SOFT TISSUES: Unremarkable. LYMPH NODES: Unremarkable. No enlarged lymph nodes. IMPRESSION: Normal chest CTA. No pulmonary embolism. Electronically signed by: Alaina Curtis MD 12/10/2023 11:45 PM CDT Due to temporary technical issues with the PACS/Fluency reporting system, reports are being signed by the in house radiologists without review as a courtesy to insure prompt reporting. The interpreting radiologist is fully responsible for the content of the report.
== END 2023-12-11 00:53 | disposition home or self-care (01) ==
LOC: ER 20:46
DX: R06.00 Dyspnea, unspecified (principal); K21.9 Gastro-esophageal reflux disease without esophagitis
CPT/HCPCS: 93005; 85025; 80048; 36415; 83735; 85610; 80076; 84443; 84484; 84439; 83880; 71275; 71045; 99284; Q9967